=== PATIENT | male | born 1955 | race Caucasian/White ===

== ENCOUNTER 2017-12-14 08:02 | Day surgery (SDC) | payer OTHER ==
[~2017-12-14 08:02] MED LIST: CEFAZOLIN 2 GM/50 ML (PMX) 50 ML IVPB; ROCURONIUM 50 MG INJ; SOD CHLORIDE 0.9% 1,000 ML IV
[2017-12-14] MEDS ORDERED: CEFAZOLIN 1 GM INJ (09:25)
[2017-12-14] MEDS ORDERED: PROPOFOL 20 ML (09:25)
[2017-12-14] MEDS ORDERED: FENTAnyl 50 MCG/ML VIAL (09:25)
[2017-12-14] MEDS ORDERED: MIDAZOLAM 1 MG/ML 2 ML INJ (09:25)
[2017-12-14] MEDS ORDERED: POLYMYXIN/BACITRACIN 1L IRRIG (09:31)
[2017-12-14] MEDS ORDERED: ROPIVACAINE 0.5 % 30 ML VIAL (09:36)
[2017-12-14] MEDS: BUPIVACAINE 0.25% (MPF) 30 ML INJ (10:04)
[2017-12-14] MEDS ORDERED: METOCLOPRAMIDE 10 MG INJ (10:16)
[2017-12-14] MEDS ORDERED: KETOROLAC 30 MG INJ (10:16)
[2017-12-14] MEDS ORDERED: SUGAMMADEX SODIUM 200 MG/2 ML VIAL IV (10:16)
[2017-12-14] MEDS ORDERED: ONDANSETRON 4 MG INJ (10:16)
[2017-12-14] MEDS ORDERED: DEXAMETHASONE 4 MG/ML 1 ML INJ (10:16)
[2017-12-14] MEDS ORDERED: DIPHENHYDRAMINE 50 MG INJ IV (11:00)
[2017-12-14] MEDS ORDERED: EPHEDrine SULFATE 50 MG/5 ML SYG IV (11:00)
[2017-12-14] MEDS ORDERED: HYDROCODONE/APAP (5/325) TAB PO (11:00)
[2017-12-14] MEDS ORDERED: METOCLOPRAMIDE 10 MG INJ IV (11:00)
[2017-12-14] MEDS ORDERED: HYDROmorphONE (0.2 MG/ML) 10ML SYG IV ×2 (11:00)
[2017-12-14] MEDS ORDERED: ONDANSETRON 4 MG INJ IV (11:00)
[2017-12-14] MEDS ORDERED: MEPERIDINE 25 MG INJ IV (11:00)
[2017-12-14] MEDS ORDERED: LABETALOL HCL 20MG INJ IV (11:00)
[2017-12-14] MEDS ORDERED: OXYCODONE/ACETAMINOPHEN (5/325) TAB PO (11:00)
[2017-12-14] MEDS ORDERED: FENTAnyl 50 MCG/ML VIAL IV ×2 (11:00)
== END 2017-12-14 13:00 | disposition home or self-care (01) ==
LOC: SDS 08:02
DX: K40.30 Unilateral inguinal hernia, with obstruction, without gangrene, not specified as recurrent (principal)
CPT/HCPCS: 49507